=== PATIENT | female | born 1965 | race Caucasian/White ===

== ENCOUNTER 2018-07-08 11:37 | Inpatient (IN) ==
[2018-07-08] MEDS ORDERED: ONDANSETRON 4 MG/2 ML VIAL IV STA (13:45)
[2018-07-08] MEDS ORDERED: SODIUM CHLORIDE 0.9% 1,000 ML IV STA (13:45)
[2018-07-08] MEDS ORDERED: MORPHINE 4 MG/1 ML VIAL IV STA (13:59)
[2018-07-08 14:14] LABS: Basophils # 0.1 10*3/uL (0.0-0.2); Basophils % 0.5 % (0.0-0.8); Eosinophils # 0.2 10*3/uL (0.0-0.87); Eosinophils % 1.1 % (0.00-10.9); Hematocrit 34.4 VOL% (35.7-47.0); Hemoglobin 11.8 GM/DL (12.0-16.0); Immature Granulocytes % 0.6 %; Immature Granulocytes Absolute 0.09 #; Lymphocytes # 2.8 10*3/uL (1.4-4.0); Lymphocytes % 19.9 % (21.3-54.2); Mean Corpuscular HGB Conc 34.3 GM/DL (32-36); Mean Corpuscular Hemoglobin 32 PG (27-34); Mean Corpuscular Volume 93.2 FL (87-102); Monocytes # 1.1 10*3/uL (0.11-0.8); Monocytes % 7.7 % (1.7-12.7); Neutrophils % 70.2 % (38.7-73.9); Platelet Count 219 T/CUMM (130-400); Red Blood Count 3.69 MC/CUMM (3.8-5.5); Red Cell Distribution Width 13.1 % (9.3-17.3); White Blood Count 14.3 T/CUMM (4-12)
[2018-07-08 14:33] LABS: Alanine Aminotransferase 25 U/L (13-56); Albumin 2.3 G/DL (3.4-5.0); Alkaline Phosphatase 84 U/L (45-117); Aspartate Amino Transferase 34 U/L (0-37); Bilirubin,Total < 0.39 MG/DL (0.2-1.0); Blood Urea Nitrogen 16 MG/DL (7-18); Calcium 8.4 MG/DL (8.5-10.1); Glucose 323 MG/DL (74-106); Potassium 3.3 MMOL/L (3.5-5.1); Sodium 136 MMOL/L (136-145); Total Protein 6.7 G/DL (6.4-8.3)
[2018-07-08] MEDS ORDERED: DEXTROSE 50% 25 GM/50 ML VIAL IV PRN (14:53)
[2018-07-08] MEDS ORDERED: GLUCAGON 1 MG VIAL IM PRN (14:53)
[2018-07-08] MEDS ORDERED: ACETAMINOPHEN 325 MG TABLET PO PRN (14:53)
[2018-07-08 15:06] LABS: Apearance,Urine CLEAR (Clear); Bilirubin,Urine Negative (Negative); Blood, Urine Moderate mg/dL (Negative); Glucose,Urine (UA) >=500 mg/dL (Negative); Ketones,Urine 5 mg/dL (Negative); Nitrite,Urine Negative (Negative); Protein,Urine >=500 MG/DL; RBC,Urine 3 /HPF (0-4); Squamous Epithelial Cell,Urine Occasional /HPF (0-10); Urine Color Yellow (Yellow); Urine Specific Gravity 1.032 (1.001-1.035); Urine Urobilinogen < 2.0 EU/DL (0.2-1.0); WBC,Urine <1 /HPF (0-6)
[2018-07-08] MEDS: MORPHINE 4 MG/1 ML VIAL IV PRN ×2 (15:55→20:36)
[2018-07-08] MEDS: ONDANSETRON 4 MG/2 ML VIAL IV PRN (15:56)
[2018-07-08] MEDS: SODIUM CHLORIDE 0.9% 1,000 ML IV SCH (16:03)
[2018-07-08] MEDS ORDERED: INSULIN LISPRO 100 UNIT/ML ONE (16:06)
[2018-07-08] MEDS: INSULIN LISPRO 100 UNIT/ML SUBCUT SCH ×2 (17:30→21:13)
[2018-07-08] MEDS: ENOXAPARIN 40 MG/0.4 ML SYRINGE SUBCUT SCH (18:01)
[2018-07-08] MEDS: CEFTAROLINE 600 MG in SODIUM CHLORIDE 0.9% 100 ML IV SCH (20:41)
[2018-07-08] MEDS ORDERED: POTASSIUM CHLORIDE 20 MEQ TABLET PO PRN (23:55)
[2018-07-08] MEDS ORDERED: HYDROmorphone 2 MG/1 ML VIAL IV PRN (23:56)
[2018-07-09] MEDS: ONDANSETRON 4 MG/2 ML VIAL IV PRN ×3 (00:09→16:22)
[2018-07-09] MEDS: SODIUM CHLORIDE 0.9% 1,000 ML IV SCH ×2 (00:15→09:03)
[2018-07-09] MEDS: HYDROmorphone 2 MG/1 ML VIAL IV PRN ×5 (03:41→21:01)
[2018-07-09] MEDS: PROMETHAZINE 25 MG/1 ML VIAL IM PRN ×2 (03:44→12:22)
[2018-07-09 04:36] LABS: Basophils # 0.1 10*3/uL (0.0-0.2); Basophils % 0.7 % (0.0-0.8); Eosinophils # 0.3 10*3/uL (0.0-0.87); Eosinophils % 2.7 % (0.00-10.9); Hemoglobin 11.3 GM/DL (12.0-16.0); Immature Granulocytes % 0.6 %; Immature Granulocytes Absolute 0.06 #; Lymphocytes % 28.3 % (21.3-54.2); Mean Corpuscular HGB Conc 32.3 GM/DL (32-36); Mean Corpuscular Hemoglobin 31 PG (27-34); Mean Corpuscular Volume 96.2 FL (87-102); Mean Platelet Volume 9.2 FL (9.6-12.0); Monocytes # 0.9 10*3/uL (0.11-0.8); Monocytes % 8.7 % (1.7-12.7); Neutrophils # 6.2 10*3/uL (1.4-7.4); Platelet Count 237 T/CUMM (130-400); Red Blood Count 3.64 MC/CUMM (3.8-5.5); Red Cell Distribution Width 13.1 % (9.3-17.3); White Blood Count 10.4 T/CUMM (4-12)
[2018-07-09 05:41] LABS: Calcium 7.7 MG/DL (8.5-10.1); Osmolality,Calculated 289.7 MOS/KG (273-304); Potassium 4.1 MMOL/L (3.5-5.1); Risk Ratio 4.61; Thyroid Stimulating Hormone 1.21 uIU/ml (0.358-3.74); VLDL CHOLESTEROL 60.4 MG/DL
[2018-07-09] MEDS: INSULIN LISPRO 100 UNIT/ML SUBCUT SCH ×4 (08:30→20:55)
[2018-07-09] MEDS: CEFTAROLINE 600 MG in SODIUM CHLORIDE 0.9% 100 ML IV SCH ×2 (08:59→21:03)
[2018-07-09] MEDS: PANTOPRAZOLE 40 MG TABLET PO SCH (09:00)
[2018-07-09] MEDS: amLODIPine 5 MG TABLET PO SCH (09:02)
[2018-07-09] MEDS: CITALOPRAM 40 MG TABLET PO SCH (11:00)
[2018-07-09] MEDS: METOPROLOL SUCCINATE XL 100 MG TABLET PO SCH (11:00)
[2018-07-09] MEDS: DULoxetine 30 MG CAPSULE PO SCH (11:00)
[2018-07-09] MEDS: ENOXAPARIN 40 MG/0.4 ML SYRINGE SUBCUT SCH (16:00)
[2018-07-09] MEDS: GABAPENTIN 300 MG CAPSULE PO SCH ×2 (16:00→20:56)
[2018-07-09] MEDS: INSULIN ASPART PROTAMINE/ASPART 70/30 100 UNIT/ML SUBCUT SCH (16:22)
[2018-07-09 17:25] LABS: Protein/Creatinine Ratio,Urine 4.9 RATIO
[2018-07-09] MEDS: PROBENECID 500 MG TABLET PO SCH (20:54)
[2018-07-09] MEDS: BACLOFEN 10 MG TABLET PO SCH (20:55)
[2018-07-09] MEDS ORDERED: TORSEMIDE 20 MG TABLET PO SCH (21:30)
[2018-07-10] MEDS: SODIUM CHLORIDE 0.9% 1,000 ML IV SCH ×3 (01:12→23:41)
[2018-07-10] MEDS: HYDROmorphone 2 MG/1 ML VIAL IV PRN ×8 (06:14→21:32)
[2018-07-10] MEDS: ONDANSETRON 4 MG/2 ML VIAL IV PRN ×3 (06:15→18:23)
[2018-07-10] MEDS ORDERED: LIDOCAINE 1% 20 ML VIAL ONE (06:53)
[2018-07-10 07:29] LABS: Basophils # 0.1 10*3/uL (0.0-0.2); Basophils % 0.7 % (0.0-0.8); Eosinophils # 0.2 10*3/uL (0.0-0.87); Hemoglobin 11.2 GM/DL (12.0-16.0); Immature Granulocytes % 1.3 %; Immature Granulocytes Absolute 0.12 #; Lymphocytes # 2.6 10*3/uL (1.4-4.0); Lymphocytes % 27.5 % (21.3-54.2); Mean Corpuscular HGB Conc 32.9 GM/DL (32-36); Mean Corpuscular Hemoglobin 32 PG (27-34); Mean Corpuscular Volume 95.5 FL (87-102); Mean Platelet Volume 8.7 FL (9.6-12.0); Monocytes # 0.8 10*3/uL (0.11-0.8); Monocytes % 8.4 % (1.7-12.7); Neutrophils # 5.6 10*3/uL (1.4-7.4); Neutrophils % 60.1 % (38.7-73.9); Platelet Count 241 T/CUMM (130-400); Red Blood Count 3.56 MC/CUMM (3.8-5.5); Red Cell Distribution Width 13.2 % (9.3-17.3); White Blood Count 9.4 T/CUMM (4-12)
[2018-07-10 08:04] LABS: Calcium 7.6 MG/DL (8.5-10.1); Osmolality,Calculated 289.7 MOS/KG (273-304); Potassium 3.6 MMOL/L (3.5-5.1)
[2018-07-10] MEDS ORDERED: ONDANSETRON 4 MG/2 ML VIAL ONE (08:07)
[2018-07-10] MEDS ORDERED: HYDROmorphone 2 MG/1 ML VIAL ONE (08:07)
[2018-07-10] MEDS ORDERED: PROPOFOL 200 MG/20 ML VIAL IV ONE (08:08)
[2018-07-10] MEDS ORDERED: fentaNYL 100 MCG/2 ML VIAL ONE (08:08)
[2018-07-10] MEDS ORDERED: MIDAZOLAM 2 MG/2 ML VIAL ONE (08:08)
[2018-07-10] MEDS ORDERED: ONDANSETRON 4 MG/2 ML VIAL IV PRN (08:13)
[2018-07-10] MEDS: PROBENECID 500 MG TABLET PO SCH ×2 (08:24→20:50)
[2018-07-10] MEDS: CITALOPRAM 40 MG TABLET PO SCH (08:24)
[2018-07-10] MEDS: INSULIN LISPRO 100 UNIT/ML SUBCUT SCH ×4 (08:24→20:48)
[2018-07-10] MEDS: INSULIN ASPART PROTAMINE/ASPART 70/30 100 UNIT/ML SUBCUT SCH ×2 (08:24→16:02)
[2018-07-10] MEDS: GABAPENTIN 300 MG CAPSULE PO SCH ×3 (08:25→20:50)
[2018-07-10] MEDS: amLODIPine 5 MG TABLET PO SCH (08:25)
[2018-07-10] MEDS: PANTOPRAZOLE 40 MG TABLET PO SCH (08:25)
[2018-07-10] MEDS: DULoxetine 30 MG CAPSULE PO SCH (08:25)
[2018-07-10] MEDS ORDERED: GLUCAGON 1 MG VIAL IM PRN (09:26)
[2018-07-10] MEDS ORDERED: DEXTROSE 50% 25 GM/50 ML VIAL IV PRN (09:26)
[2018-07-10] MEDS ORDERED: INSULIN REGULAR 100 UNIT/ML SUBCUT SCH (11:30)
[2018-07-10] MEDS: CEFTAROLINE 600 MG in SODIUM CHLORIDE 0.9% 100 ML IV SCH ×2 (12:46→20:48)
[2018-07-10] MEDS: METOPROLOL SUCCINATE XL 100 MG TABLET PO SCH (12:48)
[2018-07-10] MEDS: ENOXAPARIN 40 MG/0.4 ML SYRINGE SUBCUT SCH (15:38)
[2018-07-10] MEDS: BACLOFEN 10 MG TABLET PO SCH (20:50)
[2018-07-11] MEDS: SODIUM CHLORIDE 0.9% 1,000 ML IV SCH ×3 (00:03→16:54)
[2018-07-11] MEDS: HYDROmorphone 2 MG/1 ML VIAL IV PRN ×5 (04:22→22:30)
[2018-07-11] MEDS: ONDANSETRON 4 MG/2 ML VIAL IV PRN ×3 (04:26→15:25)
[2018-07-11 05:45] LABS: Basophils # 0.1 10*3/uL (0.0-0.2); Basophils % 0.7 % (0.0-0.8); Eosinophils # 0.3 10*3/uL (0.0-0.87); Eosinophils % 3.1 % (0.00-10.9); Hematocrit 34.8 VOL% (35.7-47.0); Hemoglobin 11.3 GM/DL (12.0-16.0); Immature Granulocytes % 1.4 %; Immature Granulocytes Absolute 0.11 #; Lymphocytes # 2.5 10*3/uL (1.4-4.0); Lymphocytes % 30.8 % (21.3-54.2); Mean Corpuscular HGB Conc 32.5 GM/DL (32-36); Mean Corpuscular Hemoglobin 32 PG (27-34); Mean Corpuscular Volume 96.9 FL (87-102); Mean Platelet Volume 8.6 FL (9.6-12.0); Monocytes # 0.6 10*3/uL (0.11-0.8); Monocytes % 7.8 % (1.7-12.7); Neutrophils # 4.5 10*3/uL (1.4-7.4); Neutrophils % 56.2 % (38.7-73.9); Platelet Count 238 T/CUMM (130-400); Red Blood Count 3.59 MC/CUMM (3.8-5.5); Red Cell Distribution Width 13.2 % (9.3-17.3); White Blood Count 8.1 T/CUMM (4-12)
[2018-07-11 06:10] LABS: Calcium 7.6 MG/DL (8.5-10.1); Osmolality,Calculated 289.4 MOS/KG (273-304); Potassium 3.8 MMOL/L (3.5-5.1)
[2018-07-11] MEDS: PANTOPRAZOLE 40 MG TABLET PO SCH (08:50)
[2018-07-11] MEDS: PROBENECID 500 MG TABLET PO SCH ×2 (08:50→21:14)
[2018-07-11] MEDS: amLODIPine 5 MG TABLET PO SCH (08:50)
[2018-07-11] MEDS: DULoxetine 30 MG CAPSULE PO SCH (08:50)
[2018-07-11] MEDS: METOPROLOL SUCCINATE XL 100 MG TABLET PO SCH (08:50)
[2018-07-11] MEDS: CITALOPRAM 40 MG TABLET PO SCH (08:50)
[2018-07-11] MEDS: INSULIN ASPART PROTAMINE/ASPART 70/30 100 UNIT/ML SUBCUT SCH ×2 (08:51→16:52)
[2018-07-11] MEDS: GABAPENTIN 300 MG CAPSULE PO SCH ×3 (08:51→21:14)
[2018-07-11] MEDS: INSULIN LISPRO 100 UNIT/ML SUBCUT SCH ×4 (09:34→21:13)
[2018-07-11] MEDS: SODIUM HYPOCHLORITE 0.25% IRRIG 473 ML BOTTLE TOP SCH (09:50)
[2018-07-11] MEDS: CHLORHEXIDINE 4% SOLN 118 ML BOTTLE TOP SCH (09:50)
[2018-07-11] MEDS ORDERED: VANCOMYCIN INJ 2,000 MG in SODIUM CHLORIDE 0.9% 500 ML IV SCH (10:00)
[2018-07-11] MEDS: ENOXAPARIN 40 MG/0.4 ML SYRINGE SUBCUT SCH (15:09)
[2018-07-11] MEDS: AMPICILLIN/SULBACTAM 1,500 MG in SODIUM CHLORIDE 0.9% 100 ML IV SCH ×2 (15:17→21:13)
[2018-07-11] MEDS: BACLOFEN 10 MG TABLET PO SCH (21:14)
[2018-07-12] MEDS: ONDANSETRON 4 MG/2 ML VIAL IV PRN ×2 (01:17→21:36)
[2018-07-12] MEDS: HYDROmorphone 2 MG/1 ML VIAL IV PRN ×6 (01:18→21:24)
[2018-07-12] MEDS: AMPICILLIN/SULBACTAM 1,500 MG in SODIUM CHLORIDE 0.9% 100 ML IV SCH ×3 (01:42→17:43)
[2018-07-12] MEDS: SODIUM CHLORIDE 0.9% 1,000 ML IV SCH ×2 (05:42→12:20)
[2018-07-12] MEDS: INSULIN LISPRO 100 UNIT/ML SUBCUT SCH ×4 (07:31→21:29)
[2018-07-12] MEDS: INSULIN ASPART PROTAMINE/ASPART 70/30 100 UNIT/ML SUBCUT SCH ×2 (07:32→17:40)
[2018-07-12] MEDS: PROBENECID 500 MG TABLET PO SCH ×2 (08:48→21:36)
[2018-07-12] MEDS: PANTOPRAZOLE 40 MG TABLET PO SCH (08:48)
[2018-07-12] MEDS: DULoxetine 30 MG CAPSULE PO SCH (08:48)
[2018-07-12] MEDS: TORSEMIDE 20 MG TABLET PO SCH (08:49)
[2018-07-12] MEDS: GABAPENTIN 300 MG CAPSULE PO SCH ×3 (08:49→21:28)
[2018-07-12] MEDS: amLODIPine 5 MG TABLET PO SCH (08:49)
[2018-07-12] MEDS: CITALOPRAM 40 MG TABLET PO SCH (08:49)
[2018-07-12] MEDS: METOPROLOL SUCCINATE XL 100 MG TABLET PO SCH (08:49)
[2018-07-12] MEDS: ENOXAPARIN 40 MG/0.4 ML SYRINGE SUBCUT SCH (17:41)
[2018-07-12] MEDS: CHLORHEXIDINE 4% SOLN 118 ML BOTTLE TOP SCH (18:00)
[2018-07-12] MEDS: SODIUM HYPOCHLORITE 0.25% IRRIG 473 ML BOTTLE TOP SCH (18:00)
[2018-07-12] MEDS: BACLOFEN 10 MG TABLET PO SCH (21:28)
[2018-07-13] MEDS: AMPICILLIN/SULBACTAM 1,500 MG in SODIUM CHLORIDE 0.9% 100 ML IV SCH ×4 (00:25→18:15)
[2018-07-13] MEDS: SODIUM CHLORIDE 0.9% 1,000 ML IV SCH ×3 (01:20→23:42)
[2018-07-13] MEDS: HYDROmorphone 2 MG/1 ML VIAL IV PRN ×5 (01:35→22:07)
[2018-07-13] MEDS: INSULIN LISPRO 100 UNIT/ML SUBCUT SCH ×4 (08:30→22:08)
[2018-07-13] MEDS: INSULIN ASPART PROTAMINE/ASPART 70/30 100 UNIT/ML SUBCUT SCH ×2 (08:30→16:48)
[2018-07-13] MEDS: METOPROLOL SUCCINATE XL 100 MG TABLET PO SCH (09:05)
[2018-07-13] MEDS: PROBENECID 500 MG TABLET PO SCH ×2 (09:24→20:45)
[2018-07-13] MEDS: DULoxetine 30 MG CAPSULE PO SCH (09:24)
[2018-07-13] MEDS: SODIUM HYPOCHLORITE 0.25% IRRIG 473 ML BOTTLE TOP SCH (09:24)
[2018-07-13] MEDS: TORSEMIDE 20 MG TABLET PO SCH (09:24)
[2018-07-13] MEDS: GABAPENTIN 300 MG CAPSULE PO SCH ×3 (09:24→20:46)
[2018-07-13] MEDS: CITALOPRAM 40 MG TABLET PO SCH (09:24)
[2018-07-13] MEDS: CHLORHEXIDINE 4% SOLN 118 ML BOTTLE TOP SCH (09:24)
[2018-07-13] MEDS: PANTOPRAZOLE 40 MG TABLET PO SCH (09:25)
[2018-07-13] MEDS: amLODIPine 5 MG TABLET PO SCH (09:39)
[2018-07-13] MEDS: ONDANSETRON 4 MG/2 ML VIAL IV PRN ×2 (09:39→16:48)
[2018-07-13] MEDS ORDERED: LIDOCAINE 1% 20 ML VIAL ONE (11:24)
[2018-07-13] MEDS ORDERED: PROPOFOL 200 MG/20 ML VIAL IV ONE (12:32)
[2018-07-13] MEDS ORDERED: MIDAZOLAM 2 MG/2 ML VIAL ONE (12:33)
[2018-07-13] MEDS ORDERED: fentaNYL 100 MCG/2 ML VIAL ONE (12:33)
[2018-07-13] MEDS: ENOXAPARIN 40 MG/0.4 ML SYRINGE SUBCUT SCH (15:44)
[2018-07-13] MEDS: BACLOFEN 10 MG TABLET PO SCH (20:45)
[2018-07-14] MEDS: AMPICILLIN/SULBACTAM 1,500 MG in SODIUM CHLORIDE 0.9% 100 ML IV SCH ×3 (01:40→12:47)
[2018-07-14] MEDS: HYDROmorphone 2 MG/1 ML VIAL IV PRN ×3 (01:50→21:51)
[2018-07-14] MEDS: SODIUM CHLORIDE 0.9% 1,000 ML IV SCH ×2 (04:45→20:41)
[2018-07-14] MEDS: INSULIN ASPART PROTAMINE/ASPART 70/30 100 UNIT/ML SUBCUT SCH ×2 (08:30→17:30)
[2018-07-14] MEDS: INSULIN LISPRO 100 UNIT/ML SUBCUT SCH ×4 (08:30→20:42)
[2018-07-14] MEDS: CITALOPRAM 40 MG TABLET PO SCH (09:02)
[2018-07-14] MEDS: TORSEMIDE 20 MG TABLET PO SCH (09:02)
[2018-07-14] MEDS: DULoxetine 30 MG CAPSULE PO SCH (09:02)
[2018-07-14] MEDS: PANTOPRAZOLE 40 MG TABLET PO SCH (09:03)
[2018-07-14] MEDS: amLODIPine 5 MG TABLET PO SCH (09:03)
[2018-07-14] MEDS: METOPROLOL SUCCINATE XL 100 MG TABLET PO SCH (09:03)
[2018-07-14] MEDS: GABAPENTIN 300 MG CAPSULE PO SCH ×3 (09:03→20:42)
[2018-07-14] MEDS: PROBENECID 500 MG TABLET PO SCH ×2 (09:04→20:42)
[2018-07-14] MEDS: CHLORHEXIDINE 4% SOLN 118 ML BOTTLE TOP SCH (09:04)
[2018-07-14] MEDS: SODIUM HYPOCHLORITE 0.25% IRRIG 473 ML BOTTLE TOP SCH (09:04)
[2018-07-14] MEDS: VANCOMYCIN INJ 2,000 MG in SODIUM CHLORIDE 0.9% 500 ML IV SCH (14:51)
[2018-07-14] MEDS: ENOXAPARIN 40 MG/0.4 ML SYRINGE SUBCUT SCH (14:52)
[2018-07-14] MEDS: ONDANSETRON 4 MG/2 ML VIAL IV PRN (14:52)
[2018-07-14] MEDS: BACLOFEN 10 MG TABLET PO SCH (20:42)
[2018-07-15] MEDS: VANCOMYCIN INJ 2,000 MG in SODIUM CHLORIDE 0.9% 500 ML IV SCH (03:35)
[2018-07-15] MEDS: HYDROmorphone 2 MG/1 ML VIAL IV PRN (04:15)
[2018-07-15 05:57] LABS: Calcium 7.9 MG/DL (8.5-10.1); Osmolality,Calculated 286.3 MOS/KG (273-304); Potassium 3.5 MMOL/L (3.5-5.1)
[2018-07-15] MEDS: SODIUM CHLORIDE 0.9% 1,000 ML IV SCH (06:27)
[2018-07-15] MEDS: INSULIN ASPART PROTAMINE/ASPART 70/30 100 UNIT/ML SUBCUT SCH (08:30)
[2018-07-15] MEDS: INSULIN LISPRO 100 UNIT/ML SUBCUT SCH ×2 (08:30→12:30)
[2018-07-15] MEDS: TORSEMIDE 20 MG TABLET PO SCH (08:41)
[2018-07-15] MEDS: DULoxetine 30 MG CAPSULE PO SCH (08:41)
[2018-07-15] MEDS: PROBENECID 500 MG TABLET PO SCH (08:42)
[2018-07-15] MEDS: GABAPENTIN 300 MG CAPSULE PO SCH (08:42)
[2018-07-15] MEDS: CITALOPRAM 40 MG TABLET PO SCH (08:43)
[2018-07-15] MEDS: amLODIPine 5 MG TABLET PO SCH (08:43)
[2018-07-15] MEDS: SODIUM HYPOCHLORITE 0.25% IRRIG 473 ML BOTTLE TOP SCH (08:43)
[2018-07-15] MEDS: METOPROLOL SUCCINATE XL 100 MG TABLET PO SCH (08:43)
[2018-07-15] MEDS: PANTOPRAZOLE 40 MG TABLET PO SCH (08:43)
[2018-07-15] MEDS: CHLORHEXIDINE 4% SOLN 118 ML BOTTLE TOP SCH (08:43)
[2018-07-15] MEDS ORDERED: oxyCODONE/ACETAMINOPHEN 5-325 MG TABLET PO PRN (11:21)
[2018-07-15 12:21] VITALS: BP 146/87
[2018-07-15] MEDS ORDERED: CLINDAMYCIN 300 MG CAPSULE PO SCH (18:00)
== END 2018-07-15 15:15 | disposition home or self-care (01) | DRG 264 ==
LOC: N.ED 11:37 → SUATTDRO 14:53 → N.EDINP 14:53 → N.3E 16:44
PROVIDERS: ADMIT Internal Medicine Geriatric Medicine; ATTEND Emergency Medicine